=== PATIENT | female | born 1985 | race American Indian/Alaskan Native ===

== ENCOUNTER 2018-09-11 23:22 | Emergency (ER) | payer MEDICAID ==
[2018-09-11] MEDS ORDERED: ZOFRAN IV ONE (23:52)
[2018-09-11] MEDS ORDERED: NACL 0.9% 1000 ML 1,000 ML IV ONE (23:52)
[2018-09-11] MEDS ORDERED: MORPHINE IV ONE (23:52)
--- NOTE | 2018-09-11 23:54 | Emergency Department Report ---
ED Abdominal Pain HPI - General Chief Complaint: Abdominal Pain Stated Complaint: ABD PAIN Time Seen by Provider: 09/11/18 23:47 Source: patient Mode of arrival: Ambulatory Limitations: No Limitations - History of Present Illness Initial Comments: Patient is 33 years old female with no significant past medical history. Patient presented to the ER complaining of diffuse abdominal pain and back pain started this afternoon. Patient describes her pain as crampy with no radiation. Pain associated with his nausea and vomiting and no diarrhea. Patient denied any fever or chills. MD Complaint: abdominal pain -: This afternoon Location: diffuse Radiation: none Migration to: no migration Severity: moderate Quality: cramping - Related Data Home Medications Medication Instructions Recorded Confirmed Last Taken Vit No.126/Iron/Folic 1 tab PO DAILY 06/25/14 06/25/14 06/24/14 08:00 [Classic Tablet] Previous Rx's Medication Instructions Recorded Last Taken Type Ciprofloxacin HCl [Ciprofloxacin 500 mg PO Q12H #14 tab 09/12/18 Unknown Rx TAB] Ondansetron [Zofran Odt] 4 mg PO Q8HR PRN #14 tab.rapdis 09/12/18 Unknown Rx traMADol [Ultram] 50 mg PO Q6HR PRN #14 tablet 09/12/18 Unknown Rx Allergies Allergy/AdvReac Type Severity Reaction Status Date / Time No Known Allergies Allergy Verified 06/25/14 03:41 ED Review of Systems ROS: Stated complaint: ABD PAIN Other details as noted in HPI Comment: All other systems reviewed and negative Constitutional: denies: chills, fever Respiratory: denies: cough, orthopnea, shortness of breath, SOB with exertion, SOB at rest, wheezing Cardiovascular: denies: chest pain, palpitations Gastrointestinal: abdominal pain, nausea, vomiting. denies: diarrhea, constipation, hematemesis, melena, hematochezia Musculoskeletal: back pain Neurological: denies: headache, weakness, numbness, paresthesias, confusion ED Past Medical Hx - Past Medical History Previous Medical History?: No - Surgical History Past Surgical History?: No - Social History Smoking Status: Current Every Day Smoker Substance Use Type: None - Medications Home Medications: Home Medications Medication Instructions Recorded Confirmed Last Taken Type Vit No.126/Iron/Folic 1 tab PO DAILY 06/25/14 06/25/14 06/24/14 08:00 History [Classic Tablet] Ciprofloxacin HCl [Ciprofloxacin 500 mg PO Q12H #14 tab 09/12/18 Unknown Rx TAB] Ondansetron [Zofran Odt] 4 mg PO Q8HR PRN #14 tab.rapdis 09/12/18 Unknown Rx traMADol [Ultram] 50 mg PO Q6HR PRN #14 tablet 09/12/18 Unknown Rx ED Physical Exam - General Limitations: No Limitations General appearance: alert, in no apparent distress - Head Head exam: Present: atraumatic, normocephalic, normal inspection - Eye Eye exam: Present: normal appearance, PERRL - ENT ENT exam: Present: normal exam, normal orophraynx, mucous membranes moist - Neck Neck exam: Present: normal inspection, full ROM. Absent: tenderness, meningismus, lymphadenopathy, thyromegaly - Respiratory Respiratory exam: Present: normal lung sounds bilaterally. Absent: respiratory distress, wheezes, rales, rhonchi, chest wall tenderness, accessory muscle use, decreased breath sounds, prolonged expiratory - Cardiovascular Cardiovascular Exam: Present: regular rate, normal rhythm, normal heart sounds - GI/Abdominal GI/Abdominal exam: Present: soft, normal bowel sounds. Absent: distended, tenderness, guarding, rebound, rigid, organomegaly, mass, bruit, pulsatile mass, hernia - Extremities Exam Extremities exam: Present: normal inspection, full ROM, normal capillary refill - Back Exam Back exam: Present: normal inspection, full ROM. Absent: tenderness, CVA tenderness (R), CVA tenderness (L), muscle spasm, paraspinal tenderness, vertebral tenderness - Neurological Exam Neurological exam: Present: alert, oriented X3, CN II-XII intact, normal gait, reflexes normal - Skin Skin exam: Present: warm, intact, normal color ED Course Vital Signs 09/11/18 23:30 Temperature 98.7 F Pulse Rate 96 H Respiratory 16 Rate Blood Pressure 129/77 ED Medical Decision Making - Lab Data Result diagrams: 09/11/18 23:45 09/11/18 23:45 - Radiology Data Radiology results: report reviewed Referring Physician: WILBUR LARA Patient Name: LEWIS JACOBO Date of : 1985 Sex: Female Report Date: 2018-09-12 Report Status: Finalized Findings [address] [place] [address] Cat Scan Report Signed Patient: LEWIS JACOBO MR#: [id number] : 1985 Acct:[id number] Age/Sex: 33 / F ADM Date: 09/11/18 Loc: ED Attending Dr: Ordering Physician: WILBUR LARA Date of Service: 09/12/18 Procedure(s): CT abdomen pelvis w con Accession Number(s): [id number] cc: WILBUR LARA PROCEDURE: CT ABDOMEN PELVIS W CON TECHNIQUE: Helical CT scanning was performed from the lung bases, through the abdomen and pelvis, to the level of lesser trochanters at 5 mm slice thickness following the administration of oral contrast and during the administration of IV contrast material. MPR. HISTORY: Abdominal pain. COMPARISONS: None available FINDINGS: FINDINGS: LUNG BASES/LOWER HEART: The visualized portions of the heart and lung bases are clear. ABDOMEN/PELVIS: LIVER: Homogeneous parenchymal attenuation. Mild enlargement. SPLEEN: Enhances homogeneously. PANCREAS: Demonstrates normal morphology. ADRENAL GLANDS: Maintain their normal shapes and sizes. GALL BLADDER: Distended with bile. Small wall calcifications or dependent calculi are noted, no adjacent inflammatory change. BILIARY SYSTEM: There is no significant intra- or extrahepatic biliary dilatation. PORTAL VEIN: Opacifies normally. KIDNEYS: Enhance promptly and symmetrically. No hydronephrosis. GREAT VESSELS: Enhance unremarkably. MESENTERY: Unremarkable. RETROPERITONEUM: No abnormality detected. LYMPH NODES: There is no significant intra abdominal, pelvic or inguinal lymphadenopathy. VARIABLY OPACIFIED AND DISTENDED BOWEL LOOPS: Moderate volume of formed colonic stool is present throughout the colon, most prominent involving the cecum. APPENDIX: Not visualized. URINARY BLADDER: Distended with urine and without any obvious intravesical mass. INTERNAL GENITAL ORGANS:Right ovary appears enlarged and mild inflammatory changes in the lower abdomen are present. OSSEOUS STRUCTURES: No acute abnormality. IMPRESSION: 1. Suggested mild enlargement of the right ovary with possible mild inflammatory change in the adjacent tissues. Evaluation is limited due to the absence of intravenous contrast. Correlation with exam requested and consider dedicated pelvic ultrasound if concern for ovarian/adnexal pathology. 2. The appendix is not visualized a discrete structure, however there is no inflammatory change that appears centered about the cecum. 3. Moderate volume formed colonic stool. 4. Small gallstones vs wall calcifications, no CT findings to suggest acute cholecystitis. This document is electronically signed by Taty Gentile DO., Sep 12 2018 02:57:54 AM ET Transcribed By: DT Dictated By: TATY GENTILE DO Electronically Authenticated By: TATY GENTILE DO Signed Date/Time: 09/12/18258 DD/ 5 TD/TT: 09/12/18245 - Medical Decision Making Patient is 33 years old female with no significant past medical history. Patient presented to the ER complaining of diffuse abdominal pain and back pain started this afternoon. Patient describes her pain as crampy with no radiation. Pain associated with his nausea and vomiting and no diarrhea. Patient denied any fever or chills. Patient labs showed elevated white blood cells and a strongly positive urine for UTI. Patient received Rocephin IV. She received morphine and Dilaudid for pain. Patient had a CT abdomen and pelvis which showed mildly enlarged right ovary and recommended a an ultrasound which she showed Patient stated that she is feeling much better. Patient will be discharged home with ciprofloxacin for UTI and advised to follow-up with her primary care physician in the next 2-3 days and return to the ER if symptoms are not improved. Critical care attestation.: If time is entered above; I have spent that time in minutes in the direct care of this critically ill patient, excluding procedure time. ED Disposition Clinical Impression: Abdominal pain, UTI (urinary tract infection), Ovarian cyst Disposition: - TO HOME OR SELFCARE Is pt being admited?: No Condition: Stable Instructions: Abdominal Pain (ED), Urinary Tract Infection in Women (ED), Ovarian Cyst (ED) Prescriptions: Ciprofloxacin HCl [Ciprofloxacin TAB] 500 mg PO Q12H #14 tab traMADol [Ultram] 50 mg PO Q6HR PRN #14 tablet PRN Reason: Pain Ondansetron [Zofran Odt] 4 mg PO Q8HR PRN #14 tab.rapdis PRN Reason: Nausea And Vomiting Referrals: ARIAN BURGOS MD [Primary Care Provider] - 3-5 Days
[2018-09-11 23:55] LABS: Hematocrit 35.5 % (30.3-42.9); Hemoglobin 11.5 gm/dl (10.1-14.3); Mean Corpuscular HGB Conc 32 % (30-34); Mean Corpuscular Volume 78 fl (79-97); Platelet Count 291 K/mm3 (140-440); Red Blood Count 4.54 M/mm3 (3.65-5.03); Red Cell Distribution Width 24.1 % (13.2-15.2)
[2018-09-12 00:18] LABS: Alanine Aminotransferase 10 units/L (7-56); Albumin 4.1 g/dL (3.9-5); BUN/Creatinine Ratio 13; Blood Urea Nitrogen 9 mg/dL (7-17); Calcium 9.2 mg/dL (8.4-10.2); Hemolysis Index 3
[2018-09-12 00:42] LABS: Bilirubin,Urine NEG (Negative); Blood,Urine LG (Negative); Color,Urine Yellow (Yellow); Mucus,Urine FEW /HPF; RBC,Urine > 182.0 /HPF (0.0-6.0); Urobilinogen,Urine < 2.0 mg/dL (<2.0); WBC,Urine > 182.0 /HPF (0.0-6.0)
[2018-09-12 01:32] LABS: Basophils % (Manual) 0 % (0.0-1.8); Eosinophils % (Manual) 0 % (0.0-4.3); Total Cells Counted 100
[2018-09-12 01:33] LABS: Anisocytosis 1+; Hypochromasia 1+; Large Platelets 1+; Platelet Estimate Consistent w Auto; Poikilocytosis 1+
[2018-09-12] MEDS ORDERED: ROCEPHIN/NS 1 GM/50 ML 1 GM/50 ML BAG IV ONE (01:42)
[2018-09-12] MEDS ORDERED: MORPHINE ONE (02:56)
[2018-09-12] MEDS ORDERED: MORPHINE IM ONE (02:58)
[2018-09-12] MEDS ORDERED: MORPHINE IV ONE (02:59)
--- NOTE | 2018-09-12 02:59 | Cat Scan Report ---
PROCEDURE: CT ABDOMEN PELVIS W CON TECHNIQUE: Helical CT scanning was performed from the lung bases, through the abdomen and pelvis, to the level of lesser trochanters at 5 mm slice thickness following the administration of oral contras t and during the administration of IV contrast material. MPR. HISTORY: Abdominal pain. COMPARISONS: None available FINDINGS: FINDINGS: LUNG BASES/LOWER HEART: The visualized portions of the heart and lung bases are clear. ABDOMEN/PELVIS: LIVER: Homogeneous parenchymal attenuation. Mild enlargement. SPLEEN: Enhances homogeneously. PANCREAS: Demonstrates normal morphology. ADRENAL GLANDS: Maintain their normal shapes and sizes. GALL BLADDER: Distended with bile. Small wall calcifications or dependent calculi are noted, no adjac ent inflammatory change. BILIARY SYSTEM: There is no significant intra- or extrahepatic biliary dilatation. PORTAL VEIN: Opacifies normally. KIDNEYS: Enhance promptly and symmetrically. No hydronephrosis. GREAT VESSELS: Enhance unremarkably. MESENTERY: Unremarkable. RETROPERITONEUM: No abnormality detected. LYMPH NODES: There is no significant intra abdominal, pelvic or inguinal lymphadenopathy. VARIABLY OPACIFIED AND DISTENDED BOWEL LOOPS: Moderate volume of formed colonic stool is present thro ughout the colon, most prominent involving the cecum. APPENDIX: Not visualized. URINARY BLADDER: Distended with urine and without any obvious intravesical mass. INTERNAL GENITAL ORGANS:Right ovary appears enlarged and mild inflammatory changes in the lower abdom en are present. OSSEOUS STRUCTURES: No acute abnormality. IMPRESSION: 1. Suggested mild enlargement of the right ovary with possible mild inflammatory change in the adjace nt tissues. Evaluation is limited due to the absence of intravenous contrast. Correlation with exam r equested and consider dedicated pelvic ultrasound if concern for ovarian/adnexal pathology. 2. The appendix is not visualized a discrete structure, however there is no inflammatory change that appears centered about the cecum. 3. Moderate volume formed colonic stool. 4. Small gallstones vs wall calcifications, no CT findings to suggest acute cholecystitis. This document is electronically signed by Robert Gentile DO., Sep 12 2018 02:57:54 AM ET
[2018-09-12] MEDS ORDERED: DILAUDID ONE (03:52)
[2018-09-12] MEDS ORDERED: DILAUDID IV ONE (04:59)
[2018-09-12 06:47] VITALS: BP 122/74
--- NOTE | 2018-09-12 09:32 | Ultrasound Report ---
PROCEDURE: US TRANSVAGINAL TECHNIQUE: Transvaginal imaging was obtained of the pelvis with Doppler interrogation of the adnexa. HISTORY: ABDOMINAL PAIN, abnormal ct abdomen/pelvis COMPARISONS: CT scan abdomen pelvis 09/12/2018 FINDINGS: The uterus is anteverted measuring 8.8 x 4.3 x 5.2 cm. The endometrial thickness is 5.4 mm. The myome trium is homogeneous. Free fluid is not seen. The right ovary is normal in size contour and echotexture reveal benign follicles. It measures 3.5 x 1.8 x 2.0 cm. The blood flow is normal to the right ovary. Left ovary is not visualized. IMPRESSION: Normal-appearing right ovary with benign follicles. No evidence of ovarian torsion. Left ovary not identified. Normal-appearing uterus and endometrium.. This document is electronically signed by Ivan Foote MD., Sep 12 2018 05:08:32 AM ET
--- NOTE | 2018-09-12 09:32 | Ultrasound Report ---
PROCEDURE: US PELVIC COMPLETE TECHNIQUE: Transabdominal imaging was obtained of the pelvis with Doppler interrogation of the adnex a. HISTORY: ABDOMINAL PAIN, abnormal ct abdomen/pelvis COMPARISONS: CT scan abdomen and pelvis 09/12/2018 FINDINGS: The uterus is anteverted measuring 8.8 x 4.3 x 5.1 cm. The endometrial thickness is 2.9 mm. Free flui d is not seen. The right ovary is normal in size contour and echotexture measuring 3.5 x 1.8 x 2 cm. There are benign follicles in right ovary. The blood flow is normal. The left ovary is not seen. IMPRESSION: Normal-appearing right ovary with benign follicles. No evidence of ovarian torsion. Left ovary not seen. Normal-appearing uterus and endometrium.. This document is electronically signed by Ivan Foote MD., Sep 12 2018 05:07:25 AM ET
== END 2018-09-12 06:46 | disposition home or self-care (01) ==
LOC: ED 23:22
DX: N39.0 Urinary tract infection, site not specified (principal); N83.201 Unspecified ovarian cyst, right side; F17.200 Nicotine dependence, unspecified, uncomplicated
CPT/HCPCS: 36415; 74177; 76830; 76856; 80053; 81001; 83690; 84703; 85007; 85025; 87040; 96361; 96365; 96375; 96376; 99284; J0696; J1170; J2270; J2405; J7030; Q9967